=== PATIENT | male | born 1985 | race Caucasian/White ===

== ENCOUNTER → 2020-12-21 07:33 | Outpatient (CLI) | payer OTHER, SELFPAY ==
[2020-12-21] MEDS: COVID-19 VACC #1, MRNA(MOD) 100 MCG/0.5 ML VIAL IM (07:40)
== END ==
PROVIDERS: Visit Provider Internal Medicine
DX: Z23 Encounter for immunization (principal)
CPT/HCPCS: 0011A; 91301

== ENCOUNTER → 2021-01-19 15:29 | Outpatient (CLI) | payer OTHER, SELFPAY ==
[2021-01-19] MEDS: COVID-19 VACC #2, MRNA(MOD) 100 MCG/0.5 ML VIAL IM (15:36)
== END ==
PROVIDERS: Visit Provider Internal Medicine
DX: Z23 Encounter for immunization (principal)
CPT/HCPCS: 0012A; 91301